=== PATIENT | female | born 1995 | race Two or more races ===

== ENCOUNTER 2019-05-03 17:43 | Emergency (ER) | payer BC ==
[~2019-05-03] VITALS: Ht 162.6 cm; Wt 68.0 kg
--- NOTE | 2019-05-03 17:58 | NUR ---
C/O LOWER BACK PAIN STARTED THIS AFTERNOON, DENIES RECENT FALL OR INJURY. PATIENT KEPT COMFORTABLE IN, FRIEND AT BEDSIDE. A/OX4, NO DISTRESS NOTED. WILL MONITOR.
[2019-05-03] MEDS ORDERED: CYCLOBENZAPRINE 10 MG TABLET PO ONE (18:00)
[2019-05-03] MEDS ORDERED: KETOROLAC TROMETHAMINE INJ 60 MG/2 ML VIAL IM ONE ×2 (18:00→18:06)
[2019-05-03] MEDS ORDERED: CYCLOBENZAPRINE 10 MG TABLET ONE (18:05)
--- NOTE | 2019-05-03 18:05 | NUR ---
PATIENT STATED SHE'S UNABLE TO GIVE UA SAMPLE AT THIS TIME, DUE TO BACK PAIN. PATIENT STATED "IM 100% SURE I'M NOT ." MD AWARE. PATIENT SIGNED A WAIVER FORM.
[2019-05-03] MEDS ORDERED: DEXAMETHASONE SOD PHOSPHATE 4 MG/ML VIAL IM ONE (19:00)
[2019-05-03] MEDS ORDERED: DEXAMETHASONE SOD PHOSPHATE 4 MG/ML VIAL ONE (19:03)
--- NOTE | 2019-05-03 19:12 | NUR ---
ENDORSED TO DAVID BROWN BISI.
[2019-05-03] MEDS ORDERED: MORPHINE SULFATE INJ 2 MG/ML DISP.SYRIN IV ONE (19:30)
[2019-05-03] MEDS ORDERED: ONDANSETRON HCL/PF 4 MG/2 ML VIAL IVP ONE (19:30)
[2019-05-03] MEDS ORDERED: MORPHINE SULFATE INJ 2 MG/ML DISP.SYRIN ONE (19:45)
[2019-05-03] MEDS ORDERED: ONDANSETRON HCL/PF 4 MG/2 ML VIAL ONE (19:45)
--- NOTE | 2019-05-03 19:55 | NUR ---
PT STILL UNABLE TO PROVIDE URINE SAMPLE. ER PA AWARE
--- NOTE | 2019-05-03 20:40 | NUR ---
Patient discharged to home in stable condition. Written and verbal after care instructions given. Patient verbalizes understanding of instruction. IV removed. Catheter intact and site benign. Pressure and 4x4 applied to site. No bleeding noted PT ambulatory with a steady gait. instructed not to drive, verbalized understanding.
[2019-05-03 20:43] VITALS: BP 116/61
== END 2019-05-03 20:44 | disposition home or self-care (01) ==
LOC: ER 17:45
DX: M62.830 Muscle spasm of back (principal); G89.29 Other chronic pain; M54.5 Low back pain
CPT/HCPCS: 96372 ×2; 96374; 96375; 99283; J1100; J1885; J2270; J2405